=== PATIENT | female | born 1965 | race Caucasian/White ===

== ENCOUNTER 2018-10-28 21:56 | Emergency (ER) | payer OTHER ==
[~2018-10-28] VITALS: Ht 170.2 cm; Wt 98.4 kg
--- NOTE | 2018-10-28 22:54 | NUR ---
PT AMBULATES FROM LOBBY TO ROOM.
[2018-10-28 23:17] VITALS: BP 136/74
--- NOTE | 2018-10-28 23:20 | NUR ---
FIRST CONTACT WITH PT. PT LAYING ON R SIDE LAYING FOR COMFORT FROM L LOW BACK PAIN. PT REPORTS L FLANK PAIN RADIATES TO LLQ X TODAY. DENIES N/V/D. HX OF LOW BACK PAIN, 'I THINK I'VE JUST THROWN MY BACK OUT'. PT DENIES URINARY S/S, ' I'VE HAD A KIDNEY STONE, THIS DOESN'T FEEL LIKE THAT'. BP/SPO2 MONITORING IN PLACE.
--- NOTE | 2018-10-28 23:25 | NUR ---
UA COLLECTED AND SENT
[2018-10-28] MEDS ORDERED: HYDROmorphone 1 MG/ML, 1ML ONE (23:27)
[2018-10-28] MEDS ORDERED: METHOCARBAMOL 750 MG TABLET ONE (23:27)
[2018-10-28] MEDS ORDERED: METHOCARBAMOL 750 MG TABLET PO ONE (23:30)
[2018-10-28] MEDS ORDERED: HYDROmorphone 1 MG/ML, 1ML IM ONE (23:30)
--- NOTE | 2018-10-28 23:32 | NUR ---
PT MEDICATED PER EMAR FOR 04/27 LOW BACK PAIN
[2018-10-28 23:35] LABS: MICROSCOPIC NOT IND
[2018-10-28 23:40] LABS: CULTURE INDICATED? NO
--- NOTE | 2018-10-29 00:25 | NUR ---
DC EDUCATION PROVIDED, PT DEMONSTRATES UNDERSTANDING. PT REPORTS IMPROVEMENT IN PAIN W/ MEDICATIONS. PT AMBUALTED STEADILY TO DC WITH RN AND SO. SO TO TRANSPORT PT HOME. Addendum: 10/29/18 at 0026 by LWEGENER PT MAINTAINING SPO2 >90% ON RA
== END 2018-10-29 00:28 | disposition home or self-care (01) ==
LOC: ED 23:57
DX: S39.012A Strain of muscle, fascia and tendon of lower back, initial encounter (principal); G89.29 Other chronic pain; X58.XXXA Exposure to other specified factors, initial encounter; Y93.89 Activity, other specified; Y92.89 Other specified places as the place of occurrence of the external cause; Y99.8 Other external cause status
CPT/HCPCS: 81003; 96372; 99283; J1170

== ENCOUNTER 2018-10-29 21:24 | Emergency (ER) | payer OTHER ==
[~2018-10-29] VITALS: Ht 170.2 cm; Wt 97.3 kg
[2018-10-29 21:30] VITALS: BP 141/83
--- NOTE | 2018-10-29 21:43 | NUR ---
BACK PAIN, SEEN HERE LAST PM FOR SAME. STATES "THE SPASMS ARE WORSE". PT IN POSITION OF COMFORT ON STRETCHER, STATES SPASMS HAVE 'DOUBLED IN STRENGTH'. WAITING FOR APPOINTMENT BUT UNABLE TO CONTROL PAIN. MD AT BEDSIDE, CALL LIGHT IN REACH
[2018-10-29] MEDS ORDERED: KETOROLAC 30 MG/1 ML ONE (21:53)
[2018-10-29] MEDS ORDERED: OXYcodone/APAP 10/325MG TABLET ONE (21:53)
[2018-10-29] MEDS ORDERED: DIAZEPAM 5 MG TABLET ONE (21:54)
[2018-10-29] MEDS ORDERED: DIAZEPAM 5 MG TABLET PO ONE (22:00)
[2018-10-29] MEDS ORDERED: KETOROLAC 30 MG/1 ML IM ONE (22:00)
[2018-10-29] MEDS ORDERED: OXYcodone/APAP 10/325MG TABLET PO ONE (22:00)
--- NOTE | 2018-10-29 22:15 | NUR ---
PT STATES PAIN TOLERABLE, ABLE TO GET UP FROM STRETCHER
[2018-10-29] MEDS ORDERED: ONDANSETRON ODT 8 MG ONE (22:24)
--- NOTE | 2018-10-29 22:43 | NUR ---
Patient/Caregiver given discharge instructions and they have confirmed that they understand the instructions. Patient ambulatory with steady gait.
== END 2018-10-29 22:47 | disposition home or self-care (01) ==
LOC: ED 22:15
DX: G89.29 Other chronic pain (principal); M54.5 Low back pain; M43.20 Fusion of spine, site unspecified
CPT/HCPCS: 96372; 99283; J1885

== ENCOUNTER 2018-10-31 00:18 | Emergency (ER) | payer OTHER ==
[~2018-10-31] VITALS: Ht 170.2 cm; Wt 98.0 kg
[2018-10-31] MEDS ORDERED: TRAM-47 PO (00:24)
[2018-10-31] MEDS ORDERED: VENL75CA PO (00:24)
[2018-10-31] MEDS ORDERED: CYCL-259 PO (00:24)
[2018-10-31] MEDS ORDERED: DIAZEPAM 5 MG TABLET PO ONE (01:00)
[2018-10-31] MEDS ORDERED: KETOROLAC 30 MG/1 ML IM ONE (01:00)
[2018-10-31] MEDS ORDERED: ONDANSETRON ODT 4 MG PO ONE (01:00)
[2018-10-31] MEDS ORDERED: HYDROmorphone 2 MG/ML, 1ML IM ONE (01:00)
--- NOTE | 2018-10-31 01:21 | NUR ---
Pt reports chronic back pain, states she is unable to follow up until later in the week "So I will just have to come here everyday for pain meds"
[2018-10-31] MEDS ORDERED: HYDROmorphone 2 MG/ML, 1ML ONE (01:25)
[2018-10-31] MEDS ORDERED: KETOROLAC 30 MG/1 ML ONE (01:25)
[2018-10-31] MEDS ORDERED: ONDANSETRON ODT 4 MG ONE (01:25)
[2018-10-31] MEDS ORDERED: DIAZEPAM 5 MG TABLET ONE (01:26)
[2018-10-31 01:33] VITALS: BP 129/72
--- NOTE | 2018-10-31 01:53 | NUR ---
Pt reports readiness for discharge, awake, alert and oriented, at bedside for ride home. Pt agrees to wait 15more min before discharge, MD agrees with poc
== END 2018-10-31 02:21 | disposition home or self-care (01) ==
LOC: ED 01:48
DX: S39.012A Strain of muscle, fascia and tendon of lower back, initial encounter (principal); G89.29 Other chronic pain; X58.XXXA Exposure to other specified factors, initial encounter; Y93.89 Activity, other specified; Y92.89 Other specified places as the place of occurrence of the external cause; Y99.8 Other external cause status
CPT/HCPCS: 96372; 99283; J1170; J1885; Q0162

== ENCOUNTER 2018-11-24 10:08 | Outpatient (CLI) | payer OTHER ==
[~2018-11-24 10:08] MED LIST: CYCL-259 PO; TRAM-47 PO; VENL75CA PO
== END 2018-11-24 23:59 | disposition home or self-care (01) ==
LOC: CFH 10:08
PROVIDERS: ATTEND Family Medicine
DX: Z12.31 Encounter for screening mammogram for malignant neoplasm of breast (principal)
CPT/HCPCS: 77063; 77067

== ENCOUNTER → 2019-01-18 | Outpatient (CLI) | payer OTHER | END | disposition home or self-care (01) | LOC: CFH 12:41 | PROVIDERS: ATTEND Internal Medicine Cardiovascular Disease | DX: I35.1 Nonrheumatic aortic (valve) insufficiency (principal) | CPT/HCPCS: 93306 ==

== ENCOUNTER → 2019-01-20 | Outpatient (CLI) | payer OTHER | END | disposition home or self-care (01) | LOC: CFH 08:04 | PROVIDERS: ATTEND Internal Medicine Cardiovascular Disease | DX: I25.89 Other forms of chronic ischemic heart disease (principal); I10 Essential (primary) hypertension | CPT/HCPCS: 78452; 93017; A9502 ==

== ENCOUNTER 2019-02-02 07:57 | Day surgery (SDC) | payer OTHER ==
[~2019-02-02] VITALS: Ht 168.9 cm; Wt 92.3 kg
[2019-02-02] MEDS ORDERED: SODIUM CHLORIDE 0.9% 1,000 ML IV SCH ×2 (08:20→11:00)
[2019-02-02 08:23] VITALS: BP 113/76
[2019-02-02] MEDS ORDERED: methylPREDNISolone SOD SUCC 125 MG/2 ML IVPush ONE (08:30)
[2019-02-02] MEDS ORDERED: DIPHENHYDRAMINE 50 MG/ML, 1ML IVPush ONE (08:30)
[2019-02-02] MEDS ORDERED: PLEASE ENTER HEIGHT AND WEIGHT MC SCH (08:30)
[2019-02-02] MEDS ORDERED: METO25TA91 PO (08:36)
[2019-02-02] MEDS ORDERED: ATOR40TA78 PO (08:36)
[2019-02-02] MEDS ORDERED: LISI-167 PO (08:36)
[2019-02-02] MEDS ORDERED: ASPI-496 PO (08:37)
[2019-02-02 09:10] LABS: BASOPHILS # (AUTO) 0.02 x10^3/uL (0-0.1); BASOPHILS % (AUTO) 0 % (0-1); EOSINOPHILS # (AUTO) 0.32 x10^3/uL (0-0.4); EOSINOPHILS % (AUTO) 5 % (1-7); LYMPHOCYTES # (AUTO) 2.26 x10^3/uL (1-3.4); LYMPHOCYTES % (AUTO) 34 % (22-44); MD NO; MEAN CORPUSCULAR HEMOGLOBIN 32.8 pg (27.0-34.8); MEAN CORPUSCULAR HGB CONC 33.7 g/dL (32.4-35.8); MEAN CORPUSCULAR VOLUME 97.4 fL (80-100); MEAN PLATELET VOLUME 8.5 fL (7.4-10.4); MONOCYTES % (AUTO) 6 % (2-9); NEUTROPHILS # (AUTO) 3.64 x10^3/uL (1.8-6.8); NEUTROPHILS % (AUTO) 55 % (42-75); PLATELET COUNT 228 x10^3/uL (130-400); RED BLOOD COUNT 4.49 x10^6/uL (3.82-5.3); RED CELL DISTRIBUTION WIDTH 12.4 % (9.6-15.2)
[2019-02-02 09:13] LABS: ANION GAP 8 mmol/L (5-15); CALCIUM 8.8 mg/dL (8.5-10.1); CHLORIDE 108 mmol/L (98-107); CREATININE 0.84 mg/dL (0.55-1.02)
[2019-02-02] MEDS ORDERED: MIDAZOLAM 1 MG/ML, 5ML ONE (09:30)
[2019-02-02] MEDS ORDERED: FENTANYL PF 100 MCG/2ML ONE ×2 (09:30→10:45)
[2019-02-02] MEDS ORDERED: DIPHENHYDRAMINE 50 MG/ML, 1ML ONE (09:31)
[2019-02-02] MEDS ORDERED: methylPREDNISolone SOD SUCC 125 MG/2 ML ONE (09:31)
[2019-02-02] MEDS ORDERED: ASPIRIN 325 MG TABLET EC ONE (09:31)
[2019-02-02] MEDS ORDERED: LIDOCAINE 1%, 20ML ONE (09:31)
[2019-02-02] MEDS ORDERED: MIDAZOLAM 1 MG/ML, 2ML ONE (10:45)
== END 2019-02-02 15:39 | disposition home or self-care (01) ==
LOC: CACL 07:57
PROVIDERS: ATTEND Internal Medicine Cardiovascular Disease
DX: I20.0 Unstable angina (principal); I10 Essential (primary) hypertension; E78.00 Pure hypercholesterolemia, unspecified; F17.210 Nicotine dependence, cigarettes, uncomplicated; E66.9 Obesity, unspecified; Z68.35 Body mass index [BMI] 35.0-35.9, adult; Z72.89 Other problems related to lifestyle; Z79.899 Other long term (current) drug therapy
CPT/HCPCS: 36415; 80048; 85025; 93458; 99156; C1769; C1894; J1200; J2250; J2930; J3010; Q9967

== ENCOUNTER 2019-03-09 12:40 | Outpatient (CLI) | payer OTHER, MEDICAID | END 2019-03-09 23:59 | disposition home or self-care (01) | LOC: CFH 12:40 | PROVIDERS: ATTEND Family Medicine | DX: Z12.2 Encounter for screening for malignant neoplasm of respiratory organs (principal); M25.78 Osteophyte, vertebrae; Z98.1 Arthrodesis status; R05 Cough; Z87.891 Personal history of nicotine dependence | CPT/HCPCS: G0297 ==

== ENCOUNTER → 2019-07-09 | Outpatient (CLI) | payer OTHER ==
[~2019-07-09] MED LIST changes: +ASPI-496 PO; +ATOR40TA78 PO; +IBUP-1223 PO; +LISI-167 PO; +METO25TA91 PO; +VALS80TA3 PO
== END | disposition home or self-care (01) ==
LOC: CFH 09:16
PROVIDERS: ATTEND Neurological Surgery
DX: M51.86 Other intervertebral disc disorders, lumbar region (principal); M54.5 Low back pain; Z98.1 Arthrodesis status; Z90.89 Acquired absence of other organs; Z87.891 Personal history of nicotine dependence; Z91.041 Radiographic dye allergy status
CPT/HCPCS: 72110; 72148

== ENCOUNTER → 2019-07-23 | Outpatient (CLI) | payer OTHER ==
[2019-07-23 10:52] LABS: BASOPHILS # (AUTO) 0.03 x10^3/uL (0-0.1); BASOPHILS % (AUTO) 1 % (0-1); EOSINOPHILS # (AUTO) 0.23 x10^3/uL (0-0.4); EOSINOPHILS % (AUTO) 3 % (1-7); LYMPHOCYTES # (AUTO) 2.73 x10^3/uL (1-3.4); LYMPHOCYTES % (AUTO) 39 % (22-44); MD NO; MEAN CORPUSCULAR HEMOGLOBIN 32.7 pg (27.0-34.8); MEAN CORPUSCULAR HGB CONC 33.2 g/dL (32.4-35.8); MEAN CORPUSCULAR VOLUME 98.4 fL (80-100); MEAN PLATELET VOLUME 8.5 fL (7.4-10.4); MONOCYTES % (AUTO) 7 % (2-9); NEUTROPHILS # (AUTO) 3.56 x10^3/uL (1.8-6.8); NEUTROPHILS % (AUTO) 51 % (42-75); PLATELET COUNT 244 x10^3/uL (130-400); RED BLOOD COUNT 4.66 x10^6/uL (3.82-5.3); RED CELL DISTRIBUTION WIDTH 13.4 % (9.6-15.2)
[2019-07-23 10:54] LABS: MICROSCOPIC AUTO
[2019-07-23 11:00] LABS: ALBUMIN 3.9 g/dL (3.4-5.0); ANION GAP 5 mmol/L (5-15); CALCIUM 9.2 mg/dL (8.5-10.1); CHLORIDE 109 mmol/L (98-107)
[2019-07-23 11:01] LABS: CULTURE INDICATED? YES
[2019-07-23 11:03] LABS: ALANINE AMINOTRANSFERASE 35 U/L (12-78); ALKALINE PHOSPHATASE 123 U/L (45-117); BILIRUBIN,TOTAL 0.3 mg/dL (0.2-1.0); CREATININE 0.78 mg/dL (0.55-1.02); TOTAL PROTEIN 7.1 g/dL (6.4-8.2)
[2019-07-23 11:09] LABS: INTERNATIONAL NORMALIZED RATIO 0.9 (0.93-1.1); PROTHROMBIN TIME 9.5 Seconds (9.6-11.5)
== END | disposition home or self-care (01) ==
LOC: STAR 09:34
PROVIDERS: ATTEND Neurological Surgery
DX: Z01.818 Encounter for other preprocedural examination (principal); M51.36 Other intervertebral disc degeneration, lumbar region
CPT/HCPCS: 36415; 71046; 80053; 81001; 85025; 85610; 85730; 87077; 87086; 87186; 93005

== ENCOUNTER → 2019-08-02 | Outpatient (CLI) | payer OTHER ==
[~2019-08-02] MED LIST changes: +HYDR-36 PO; +METH750T2 PO; +ONDA4TAB13 PO; +THROMBIN 5,000 UNIT VIAL TP ONE
[2019-08-02 14:07] LABS: MICROSCOPIC NOT IND
[2019-08-02 14:17] LABS: CULTURE INDICATED? NO
== END | disposition home or self-care (01) ==
LOC: LAB 13:33
PROVIDERS: ATTEND Neurological Surgery
DX: N39.0 Urinary tract infection, site not specified (principal)
CPT/HCPCS: 81003

== ENCOUNTER → 2019-08-03 | Outpatient (CLI) | payer OTHER ==
[~2019-08-03] MED LIST changes: -THROMBIN 5,000 UNIT VIAL TP ONE
== END | disposition home or self-care (01) ==
LOC: CVU 12:33
PROVIDERS: ATTEND Internal Medicine Cardiovascular Disease
DX: I35.1 Nonrheumatic aortic (valve) insufficiency (principal)
CPT/HCPCS: 0399T ×2; 93306 ×2

== ENCOUNTER 2019-08-04 14:31 | Inpatient (IN) | payer OTHER ==
[~2019-08-04] VITALS: Ht 167.6 cm; Wt 112.3 kg
[~2019-08-04 14:31] MED LIST changes: +BACITRACIN 50,000 UNIT ONE; +BUPIVACAINE/PF 0.5% ONE; +EPINEPHRINE 1 MG/ML, 1ML ONE; -HYDR-36 PO; -METH750T2 PO; -ONDA4TAB13 PO; +THROMBIN 5,000 UNIT VIAL TP ONE
[2019-08-04] MEDS ORDERED: LACTATED RINGERS 1,000 ML IV SCH (15:56)
[2019-08-04] MEDS ORDERED: MIDAZOLAM 1 MG/ML, 2ML ONE (17:10)
[2019-08-04] MEDS ORDERED: FENTANYL PF 250 MCG/5ML ONE (17:11)
[2019-08-04] MEDS ORDERED: GABAPENTIN 300 MG CAPSULE PO SCH (18:30)
[2019-08-04] MEDS ORDERED: MIDAZOLAM 1 MG/ML, 2ML IV PRN (18:30)
[2019-08-04] MEDS ORDERED: METOPROLOL 1 MG/ML, 5ML IV PRN (18:30)
[2019-08-04] MEDS ORDERED: ACETAMINOPHEN 325 MG TABLET PO PRN ×2 (18:30→22:30)
[2019-08-04] MEDS ORDERED: hydrALAzine 20 MG/ML, 1ML IV PRN (18:30)
[2019-08-04] MEDS ORDERED: PROMETHAZINE 25 MG/ML, 1ML IV PRN (18:30)
[2019-08-04] MEDS ORDERED: OXYcodone 5 MG/5 ML ORAL.SOL UDC PO PRN (18:30)
[2019-08-04] MEDS ORDERED: MEPERIDINE/PF 25MG/ML,1ML IVPush PRN (18:30)
[2019-08-04] MEDS ORDERED: ALBUTEROL/IPRATROPIUM 2.5MG/0.5MG, 3 ML NPPB PRN (18:30)
[2019-08-04] MEDS ORDERED: HYDROmorphone 2 MG/ML, 1ML IVPush PRN (18:30)
[2019-08-04] MEDS ORDERED: VANCOMYCIN 1,000 MG IVPB ONE (19:29)
[2019-08-04] MEDS ORDERED: PROPOFOL 10 MG/ML, 20ML ONE (19:32)
[2019-08-04] MEDS ORDERED: DEXAMETHASONE 4 MG/ML, 1ML ONE (19:32)
[2019-08-04] MEDS ORDERED: ONDANSETRON 2MG/ML, 2ML ONE (19:32)
[2019-08-04] MEDS ORDERED: CEFAZOLIN 1,000 MG ONE (19:32)
[2019-08-04] MEDS ORDERED: OXYcodone 5 MG/5 ML ORAL.SOL UDC ONE (19:56)
[2019-08-04] MEDS ORDERED: FENTANYL PF 100 MCG/2ML ONE (19:56)
[2019-08-04] MEDS: FENTANYL PF 100 MCG/2ML IV PRN ×2 (20:02→20:34)
[2019-08-04] MEDS ORDERED: DIAZEPAM 5 MG/ML, 2ML ONE (20:11)
[2019-08-04] MEDS: DIAZEPAM 5 MG/ML, 2ML IVPush PRN ×2 (20:19→20:31)
[2019-08-04] MEDS ORDERED: PHARMACY MAY ADJ FOR RENAL FX MC PRN (22:00)
[2019-08-04] MEDS ORDERED: ATORVASTATIN 40 MG TABLET PO SCH ×2 (22:21→23:30)
[2019-08-04] MEDS ORDERED: morphine SULFATE 10 MG/ML, 1ML IV PRN (22:30)
[2019-08-04] MEDS ORDERED: ACETAMINOPHEN 650 MG SUPP PR PRN (22:30)
[2019-08-04] MEDS ORDERED: MAGNESIUM HYDROXIDE 8%, 30ML UDC PO PRN (22:30)
[2019-08-04] MEDS ORDERED: BISACODYL 10 MG SUPP PR PRN (22:30)
[2019-08-04] MEDS ORDERED: D5%-0.9% NACL+KCL 20MEQ 1,000 ML IV SCH (22:30)
[2019-08-04] MEDS ORDERED: DIPHENHYDRAMINE 50 MG/ML, 1ML IM PRN (22:30)
[2019-08-04] MEDS ORDERED: PROMETHAZINE 25 MG/ML, 1ML IM PRN (22:30)
[2019-08-04] MEDS ORDERED: ONDANSETRON 2MG/ML, 2ML IV PRN (22:30)
[2019-08-04] MEDS ORDERED: DIPHENHYDRAMINE 25 MG CAPSULE PO PRN (22:30)
[2019-08-04] MEDS ORDERED: DIPHENHYDRAMINE 50 MG/ML, 1ML IVPush PRN (22:30)
[2019-08-04] MEDS ORDERED: METHOCARBAMOL 1,000 MG in DEXTROSE 5% 100 ML IV ONE (22:30)
[2019-08-04] MEDS ORDERED: VENLAFAXINE 75 MG CAP ER PO SCH (23:30)
[2019-08-04] MEDS ORDERED: VALSARTAN 80 MG TABLET PO SCH (23:30)
[2019-08-04] MEDS: HYDROcodone/APAP 10/325 MG TABLET PO PRN (23:43)
[2019-08-05 00:31] VITALS: BP 116/78
[2019-08-05] MEDS: CEFAZOLIN PMX 2GM/50ML 50 ML IVPB SCH ×2 (02:34→10:35)
[2019-08-05 03:55] VITALS: BP 92/51
[2019-08-05 04:17] VITALS: BP 93/54
[2019-08-05] MEDS: HYDROcodone/APAP 10/325 MG TABLET PO PRN (04:28)
[2019-08-05] MEDS ORDERED: METOPROLOL SUCCINATE 25 MG TAB.ER.24H PO SCH ×3 (06:00→09:39)
[2019-08-05] MEDS: METHOCARBAMOL 750 MG in DEXTROSE 5% 100 ML IV SCH ×2 (06:44→15:35)
[2019-08-05 08:00] VITALS: BP 100/63
[2019-08-05] MEDS ORDERED: VENLAFAXINE 75 MG CAP ER PO SCH (09:00)
[2019-08-05] MEDS ORDERED: VALSARTAN 80 MG TABLET PO SCH ×2 (09:00→09:39)
[2019-08-05] MEDS ORDERED: SENNA/DOCUSATE TABLET PO SCH (09:00)
[2019-08-05] MEDS ORDERED: HYDR-36 PO (09:50)
[2019-08-05] MEDS ORDERED: METH750T2 PO (09:51)
[2019-08-05] MEDS ORDERED: ONDA4TAB13 PO (09:52)
[2019-08-05] MEDS ORDERED: NS + 20MEQ KCL 1,000 ML IV SCH (10:00)
[2019-08-05 10:20] VITALS: BP 100/63
[2019-08-05 14:27] VITALS: BP 112/72
[2019-08-05] MEDS ORDERED: ROCURONIUM 10 MG/ML,10ML ONE (17:54)
[2019-08-05] MEDS ORDERED: EPHEDRINE 50 MG/ML, 1ML ONE (17:54)
[2019-08-05] MEDS ORDERED: SUCCINYLCHOLINE 20 MG/ML, 10ML ONE (17:54)
[2019-08-05] MEDS ORDERED: PHENYLEPHRINE 10 MG/ML ONE (17:54)
[2019-08-07] MEDS ORDERED: METHOCARBAMOL 750 MG TABLET PO SCH (06:30)
== END 2019-08-05 17:00 | disposition home or self-care (01) | DRG 496 ==
LOC: ORIP 14:31 → 4NE 21:09
PROVIDERS: ADMIT Neurological Surgery; ATTEND Neurological Surgery
PROC: 0Q5 Lower Bones, Destruction (ICD-10-PCS; 2019-08-04)
PROC: 0QP004Z Removal of Internal Fixation Device from Lumbar Vertebra, Open Approach (ICD-10-PCS; principal; 2019-08-04 17:00)
DX: M43.16 Spondylolisthesis, lumbar region (principal); Z68.41 Body mass index [BMI] 40.0-44.9, adult; I95.81 Postprocedural hypotension; I10 Essential (primary) hypertension; E78.5 Hyperlipidemia, unspecified; E66.9 Obesity, unspecified; M19.90 Unspecified osteoarthritis, unspecified site; G43.909 Migraine, unspecified, not intractable, without status migrainosus; G89.29 Other chronic pain; Z87.891 Personal history of nicotine dependence; Z91.041 Radiographic dye allergy status; Z79.899 Other long term (current) drug therapy
CPT/HCPCS: 72100; S0020; G0378; J0171; J0690; J1100; J2250; J2405; J2704; J3010; J3360; J3370; J3480; J0330; J2270; J2370; J2800; J7120

== ENCOUNTER 2019-08-16 15:28 | Outpatient (CLI) | payer OTHER ==
[~2019-08-16 15:28] MED LIST changes: -BACITRACIN 50,000 UNIT ONE; -BUPIVACAINE/PF 0.5% ONE; -EPINEPHRINE 1 MG/ML, 1ML ONE; +HYDR-36 PO; +METH750T2 PO; +ONDA4TAB13 PO; -THROMBIN 5,000 UNIT VIAL TP ONE
== END 2019-08-16 23:59 | disposition home or self-care (01) ==
LOC: CFH 15:28
PROVIDERS: ATTEND Neurological Surgery
DX: M47.816 Spondylosis without myelopathy or radiculopathy, lumbar region (principal); M43.26 Fusion of spine, lumbar region; Z98.890 Other specified postprocedural states
CPT/HCPCS: 72110

== ENCOUNTER 2019-09-19 11:08 | Emergency (ER) | payer OTHER ==
[~2019-09-19] VITALS: Ht 167.6 cm; Wt 100.1 kg
[2019-09-19 11:24] VITALS: BP 146/83
--- NOTE | 2019-09-19 11:48 | NUR ---
Xray at bedside Ice pack applied Provider asked for pain medication (Toe pain rated at 7/10)
[2019-09-19] MEDS ORDERED: IBUPROFEN 600 MG TABLET PO ONE (12:00)
[2019-09-19] MEDS ORDERED: IBUPROFEN 200 MG TABLET ONE (12:01)
--- NOTE | 2019-09-19 12:12 | NUR ---
PATIENT ACTUALLY DEFERRING MEDICINE (DOESN'T WANT IBPROFEN)PROVIDER AWARE PROVIDEED WITH WALKING SHOE-HELPED FIT
--- NOTE | 2019-09-19 12:17 | NUR ---
CELYAY CALLED TO EXPIDITE READ
== END 2019-09-19 12:43 | disposition home or self-care (01) ==
LOC: ED 11:35
DX: S90.122A Contusion of left lesser toe(s) without damage to nail, initial encounter (principal); Z91.041 Radiographic dye allergy status; X58.XXXA Exposure to other specified factors, initial encounter; Y93.89 Activity, other specified; Y92.098 Other place in other non-institutional residence as the place of occurrence of the external cause; Y99.8 Other external cause status
CPT/HCPCS: 99283

== ENCOUNTER 2019-10-29 11:17 | Outpatient (CLI) | payer OTHER | END 2019-10-29 23:59 | disposition home or self-care (01) | LOC: CFH 11:17 | PROVIDERS: ATTEND Neurological Surgery | DX: M51.37 Other intervertebral disc degeneration, lumbosacral region (principal); M48.07 Spinal stenosis, lumbosacral region | CPT/HCPCS: 72110 ==

== ENCOUNTER → 2019-12-29 | Outpatient (CLI) | payer OTHER ==
[~2019-12-29] MED LIST changes: +TRAM50TA2 PO
[2019-12-29 12:00] LABS: INTERNATIONAL NORMALIZED RATIO 0.96 (0.93-1.1); PROTHROMBIN TIME 10.2 Seconds (9.6-11.5)
[2019-12-29 12:01] LABS: BASOPHILS # (AUTO) 0.02 x10^3/uL (0-0.1); BASOPHILS % (AUTO) 0 % (0-1); EOSINOPHILS # (AUTO) 0.22 x10^3/uL (0-0.4); EOSINOPHILS % (AUTO) 3 % (1-7); LYMPHOCYTES # (AUTO) 2.18 x10^3/uL (1-3.4); LYMPHOCYTES % (AUTO) 34 % (22-44); MD NO; MEAN CORPUSCULAR HEMOGLOBIN 32.2 pg (27.0-34.8); MEAN CORPUSCULAR HGB CONC 33.9 g/dL (32.4-35.8); MEAN PLATELET VOLUME 9.3 fL (7.4-10.4); MONOCYTES # (AUTO) 0.43 x10^3/uL (0.2-0.8); MONOCYTES % (AUTO) 7 % (2-9); NEUTROPHILS # (AUTO) 3.62 x10^3/uL (1.8-6.8); NEUTROPHILS % (AUTO) 56 % (42-75); PLATELET COUNT 234 x10^3/uL (130-400); RED BLOOD COUNT 4.88 x10^6/uL (3.82-5.3); RED CELL DISTRIBUTION WIDTH 12.9 % (9.6-15.2)
[2019-12-29 12:13] LABS: ALANINE AMINOTRANSFERASE 45 U/L (12-78); ALBUMIN 3.9 g/dL (3.4-5.0); ANION GAP 5 mmol/L (5-15); CALCIUM 9.3 mg/dL (8.5-10.1); CHLORIDE 110 mmol/L (98-107); CREATININE 0.73 mg/dL (0.55-1.02)
[2019-12-29 12:15] LABS: ALKALINE PHOSPHATASE 120 U/L (45-117); BILIRUBIN,TOTAL 0.7 mg/dL (0.2-1.0); TOTAL PROTEIN 7.2 g/dL (6.4-8.2)
== END | disposition home or self-care (01) ==
LOC: STAR 10:29
PROVIDERS: ATTEND Neurological Surgery
DX: Z01.818 Encounter for other preprocedural examination (principal); M51.36 Other intervertebral disc degeneration, lumbar region
CPT/HCPCS: 36415; 71046; 80053; 85025; 85610; 85730; 93005

== ENCOUNTER 2020-01-05 10:00 | Inpatient (IN) | payer OTHER ==
[~2020-01-05] VITALS: Ht 167.6 cm; Wt 96.8 kg
[~2020-01-05 10:00] MED LIST changes: +BACITRACIN 50,000 UNIT ONE; +BUPIVACAINE/PF-EPI 0.5% 1:200K ONE; +HYDR-3246 PO; -HYDR-36 PO
[2020-01-05] MEDS ORDERED: ACETAMINOPHEN 500 MG TABLET PO STA (10:29)
[2020-01-05] MEDS ORDERED: GABAPENTIN 300 MG CAPSULE PO STA (10:29)
[2020-01-05] MEDS ORDERED: OXYcodone IR 5MG TABLET PO STA (10:29)
[2020-01-05] MEDS ORDERED: LACTATED RINGERS 1,000 ML IV SCH (10:30)
[2020-01-05] MEDS ORDERED: CHLORHEXIDINE 15 ML UDC MM ONE (10:30)
[2020-01-05] MEDS ORDERED: SCOPOLAMINE 1MG PATCH TD ONE (10:38)
[2020-01-05] MEDS ORDERED: PROPOFOL 50 ML ONE ×3 (10:44→14:13)
[2020-01-05] MEDS ORDERED: FENTANYL PF 250 MCG/5ML ONE (10:44)
[2020-01-05] MEDS ORDERED: MIDAZOLAM 1 MG/ML, 2ML ONE (10:44)
[2020-01-05] MEDS ORDERED: PROPOFOL 10 MG/ML, 20ML ONE (10:45)
[2020-01-05] MEDS ORDERED: ONDANSETRON 2MG/ML, 2ML ONE (10:45)
[2020-01-05] MEDS ORDERED: LIDOCAINE-MPF 2% ,5ML ONE ×2 (10:45)
[2020-01-05] MEDS ORDERED: SUCCINYLCHOLINE 20 MG/ML, 10ML ONE (10:45)
[2020-01-05] MEDS ORDERED: DEXAMETHASONE 4 MG/ML, 1ML ONE ×2 (10:45)
[2020-01-05] MEDS ORDERED: CEFAZOLIN 1,000 MG ONE ×2 (10:45)
[2020-01-05] MEDS ORDERED: THROMBIN 20,000 UNIT VIAL TP ONE (10:59)
[2020-01-05] MEDS ORDERED: ROCURONIUM 10 MG/ML,10ML ONE (12:34)
[2020-01-05] MEDS ORDERED: NEOSTIGMINE 1 MG/ML, 10ML ONE (12:34)
[2020-01-05] MEDS ORDERED: GLYCOPYRROLATE 0.2MG/1ML, 5ML ONE (12:34)
[2020-01-05] MEDS ORDERED: BACITRACIN OINT 500U/GM, 15 GM ONE (13:41)
[2020-01-05] MEDS ORDERED: VANCOMYCIN 1,000 MG ONE (13:42)
[2020-01-05] MEDS ORDERED: HYDROmorphone 1 MG/ML, 1ML INJ ONE (15:13)
[2020-01-05] MEDS ORDERED: OXYcodone 5 MG/5 ML ORAL.SOL UDC ONE (15:13)
[2020-01-05] MEDS: HYDROmorphone 1 MG/ML, 1ML INJ IVPush PRN ×2 (15:17→15:30)
[2020-01-05] MEDS ORDERED: MEPERIDINE/PF 25MG/ML,1ML ONE (15:22)
[2020-01-05] MEDS ORDERED: OXYcodone 5 MG/5 ML ORAL.SOL UDC PO PRN (15:30)
[2020-01-05] MEDS ORDERED: FENTANYL PF 100 MCG/2ML IV PRN (15:30)
[2020-01-05] MEDS ORDERED: ONDANSETRON 2MG/ML, 2ML IVPush PRN (15:30)
[2020-01-05] MEDS ORDERED: hydrALAzine 20 MG/ML, 1ML IV PRN (15:30)
[2020-01-05] MEDS ORDERED: MEPERIDINE/PF 25MG/0.5ML IVPush PRN (15:30)
[2020-01-05] MEDS ORDERED: METHOCARBAMOL 1,000 MG in DEXTROSE 5% 100 ML IV ONE (16:45)
[2020-01-05 17:05] VITALS: BP 110/70
[2020-01-05] MEDS ORDERED: DIPHENHYDRAMINE 50 MG/ML, 1ML IVPush PRN (17:30)
[2020-01-05] MEDS ORDERED: DIPHENHYDRAMINE 50 MG/ML, 1ML IM PRN (17:30)
[2020-01-05] MEDS ORDERED: ACETAMINOPHEN 325 MG TABLET PO PRN (17:30)
[2020-01-05] MEDS ORDERED: ACETAMINOPHEN 650 MG SUPP PR PRN (17:30)
[2020-01-05] MEDS ORDERED: METHOCARBAMOL 750 MG TABLET PO PRN (17:30)
[2020-01-05] MEDS ORDERED: PROMETHAZINE 25 MG/ML, 1ML IM PRN (17:30)
[2020-01-05] MEDS ORDERED: ONDANSETRON 2MG/ML, 2ML IV PRN (17:30)
[2020-01-05] MEDS: LABETALOL 5MG/ML, 20ML IV SCH ×2 (17:30→23:42)
[2020-01-05] MEDS ORDERED: DIPHENHYDRAMINE 25 MG CAPSULE PO PRN (17:30)
[2020-01-05] MEDS ORDERED: MAGNESIUM HYDROXIDE 8%, 30ML UDC PO PRN (17:30)
[2020-01-05] MEDS ORDERED: BISACODYL 10 MG SUPP PR PRN (17:30)
[2020-01-05 17:36] VITALS: BP 102/65
[2020-01-05 18:26] VITALS: BP 97/62
[2020-01-05] MEDS: NS + 20MEQ KCL 1,000 ML IV SCH (20:20)
[2020-01-05] MEDS: ATORVASTATIN 40 MG TABLET PO SCH (20:20)
[2020-01-05] MEDS: CEFAZOLIN PMX 1GM/50ML 50 ML IVPB SCH (20:20)
[2020-01-05 23:50] VITALS: BP 102/66
[2020-01-06] MEDS ORDERED: METHOCARBAMOL 750 MG in DEXTROSE 5% 100 ML IV SCH
[2020-01-06 03:50] VITALS: BP 86/55
[2020-01-06 03:59] VITALS: BP 106/55
[2020-01-06] MEDS: CEFAZOLIN PMX 1GM/50ML 50 ML IVPB SCH ×2 (04:53→12:27)
[2020-01-06] MEDS: METOPROLOL SUCCINATE 25 MG TAB.ER.24H PO SCH (05:58)
[2020-01-06] MEDS ORDERED: HEPARIN 5,000 UNITS/ML, 1ML SQ SCH (06:00)
[2020-01-06 07:43] VITALS: BP 93/59
[2020-01-06 08:38] VITALS: BP 101/66
[2020-01-06] MEDS: VENLAFAXINE 75 MG CAP ER PO SCH (08:39)
[2020-01-06] MEDS: SENNA/DOCUSATE TABLET PO SCH (08:39)
[2020-01-06] MEDS: LABETALOL 5MG/ML, 20ML IV SCH ×2 (08:40→17:30)
[2020-01-06] MEDS: VALSARTAN 80 MG TABLET PO SCH (08:40)
[2020-01-06] MEDS: OXYcodone/APAP 5/325MG TABLET PO PRN ×4 (09:29→20:44)
[2020-01-06] MEDS ORDERED: OXYcodone/APAP 10/325MG TABLET PO PRN (09:30)
[2020-01-06] MEDS: NS + 20MEQ KCL 1,000 ML IV SCH ×2 (10:03→22:06)
[2020-01-06 14:00] VITALS: BP 103/57
[2020-01-06 18:24] VITALS: BP 93/57
[2020-01-06] MEDS: ATORVASTATIN 40 MG TABLET PO SCH (20:38)
[2020-01-06] MEDS: METHOCARBAMOL 750 MG TABLET PO SCH (21:35)
[2020-01-07 00:23] VITALS: BP 104/65
[2020-01-07] MEDS: OXYcodone/APAP 5/325MG TABLET PO PRN ×4 (00:49→12:55)
[2020-01-07] MEDS: LABETALOL 5MG/ML, 20ML IV SCH ×2 (01:30→09:30)
[2020-01-07 05:34] VITALS: BP 110/63
[2020-01-07] MEDS: METHOCARBAMOL 750 MG TABLET PO SCH (05:36)
[2020-01-07] MEDS: METOPROLOL SUCCINATE 25 MG TAB.ER.24H PO SCH (05:36)
[2020-01-07 08:47] VITALS: BP 102/66
[2020-01-07] MEDS: VENLAFAXINE 75 MG CAP ER PO SCH (08:49)
[2020-01-07] MEDS: VALSARTAN 80 MG TABLET PO SCH (08:50)
[2020-01-07] MEDS: SENNA/DOCUSATE TABLET PO SCH (08:50)
[2020-01-07] MEDS: NS + 20MEQ KCL 1,000 ML IV SCH (10:09)
[2020-01-07 12:33] VITALS: BP 108/66
[2020-01-07] MEDS ORDERED: METH750T87 PO (12:47)
[2020-01-07] MEDS ORDERED: OXYC-307 PO (12:47)
[2020-01-07] MEDS ORDERED: DOCU-131 PO (12:48)
[2020-01-07] MEDS ORDERED: METHOCARBAMOL 750 MG TABLET PO SCH (17:00)
== END 2020-01-07 13:30 | disposition home or self-care (01) | DRG 460 ==
LOC: ORIP 10:00 → 4NE 16:42
PROVIDERS: ADMIT Neurological Surgery; ATTEND Neurological Surgery
PROC: 0SB20ZZ Excision of Lumbar Vertebral Disc, Open Approach (ICD-10-PCS; 2020-01-05)
PROC: 0SG00A0 Fusion of Lumbar Vertebral Joint with Interbody Fusion Device, Anterior Approach, Anterior Column, Open Approach (ICD-10-PCS; principal; 2020-01-05 14:30)
DX: M48.061 Spinal stenosis, lumbar region without neurogenic claudication (principal); M48.56XA Collapsed vertebra, not elsewhere classified, lumbar region, initial encounter for fracture; M51.16 Intervertebral disc disorders with radiculopathy, lumbar region; E66.9 Obesity, unspecified; Z68.34 Body mass index [BMI] 34.0-34.9, adult; G89.29 Other chronic pain; Z88.8 Allergy status to other drugs, medicaments and biological substances; I10 Essential (primary) hypertension; E78.5 Hyperlipidemia, unspecified
CPT/HCPCS: 72100; J3490; 95938; 95941; C1713; G0378; J0690; J1100; J1170; J1644; J2175; J2250; J2270; J2405; J2704; J2710; J3010; J3370; J3480; C1889; C9352; J0330; J2800; J7120; U0001-CS

== ENCOUNTER → 2020-01-26 | Outpatient (CLI) | payer OTHER ==
[~2020-01-26] MED LIST changes: -BACITRACIN 50,000 UNIT ONE; -BUPIVACAINE/PF-EPI 0.5% 1:200K ONE; +DOCU-131 PO; +METH750T87 PO; +OXYC-307 PO
== END | disposition home or self-care (01) ==
LOC: CFH 11:57
PROVIDERS: ATTEND Physician Assistant Surgical
DX: M47.816 Spondylosis without myelopathy or radiculopathy, lumbar region (principal)
CPT/HCPCS: 72131

== ENCOUNTER 2020-01-28 08:39 | Outpatient (CLI) | payer OTHER ==
[2020-01-28] MEDS ORDERED: METH750T87 PO (09:05)
[2020-01-28] MEDS ORDERED: OXYC-307 PO (09:05)
== END 2020-01-28 23:59 | disposition home or self-care (01) ==
LOC: STAR 08:39
PROVIDERS: ATTEND Neurological Surgery
DX: Z02.9 Encounter for administrative examinations, unspecified (principal)

== ENCOUNTER 2020-02-02 06:14 | Inpatient (IN) | payer OTHER ==
[~2020-02-02] VITALS: Ht 167.6 cm; Wt 96.0 kg
[2020-02-02] MEDS ORDERED: CHLORHEXIDINE 15 ML UDC MM ONE (14:30)
[2020-02-02] MEDS ORDERED: LACTATED RINGERS 1,000 ML IV SCH (14:32)
[2020-02-02] MEDS ORDERED: THROMBIN 20,000 UNIT VIAL TP ONE ×2 (14:32→19:38)
[2020-02-02] MEDS ORDERED: BACITRACIN 50,000 UNIT ONE ×2 (14:32→19:37)
[2020-02-02] MEDS ORDERED: BUPIVACAINE/PF-EPI 0.5% 1:200K ONE ×2 (14:32→19:36)
[2020-02-02] MEDS ORDERED: ACETAMINOPHEN 500 MG TABLET PO ONE (14:38)
[2020-02-02] MEDS ORDERED: GABAPENTIN 300 MG CAPSULE PO ONE (14:38)
[2020-02-02] MEDS ORDERED: SCOPOLAMINE 1MG PATCH TD ONE (14:38)
[2020-02-02] MEDS ORDERED: LIDOCAINE-MPF 1%, 2ML ONE (14:47)
[2020-02-02] MEDS ORDERED: OXYcodone IR 5MG TABLET PO ONE (15:03)
[2020-02-02] MEDS ORDERED: LIDOCAINE-MPF 1%, 2ML INFIL STA (15:10)
[2020-02-02] MEDS ORDERED: MIDAZOLAM 1 MG/ML, 2ML ONE (15:53)
[2020-02-02] MEDS ORDERED: FENTANYL PF 100 MCG/2ML ONE ×4 (15:53→21:27)
[2020-02-02] MEDS ORDERED: DEXAMETHASONE 4 MG/ML, 1ML ONE (15:57)
[2020-02-02] MEDS ORDERED: PROPOFOL 10 MG/ML, 20ML ONE (15:57)
[2020-02-02] MEDS ORDERED: CEFAZOLIN 1,000 MG ONE (15:57)
[2020-02-02] MEDS ORDERED: ROCURONIUM 10MG/ML,5ML ONE (15:57)
[2020-02-02] MEDS ORDERED: NEOSTIGMINE 1 MG/ML, 10ML ONE (15:57)
[2020-02-02] MEDS ORDERED: GLYCOPYRROLATE 0.2MG/1ML, 5ML ONE (15:57)
[2020-02-02] MEDS ORDERED: ONDANSETRON 2MG/ML, 2ML ONE (15:57)
[2020-02-02] MEDS ORDERED: BACITRACIN OINT 500U/GM, 15 GM ONE (19:36)
[2020-02-02] MEDS ORDERED: HALOPERIDOL 5 MG/ML IV PRN (20:00)
[2020-02-02] MEDS ORDERED: hydrALAzine 20 MG/ML, 1ML IV PRN (20:00)
[2020-02-02] MEDS ORDERED: DIAZEPAM 5 MG/ML, 2ML IVPush PRN (20:00)
[2020-02-02] MEDS ORDERED: METHOCARBAMOL 1,000 MG in DEXTROSE 5% 100 ML IV PRN (20:00)
[2020-02-02] MEDS ORDERED: MEPERIDINE/PF 25MG/0.5ML IVPush PRN (20:00)
[2020-02-02] MEDS ORDERED: morphine SULFATE 10 MG/ML, 1ML IVPush PRN (20:00)
[2020-02-02] MEDS ORDERED: HYDROmorphone 1 MG/ML, 1ML INJ IVPush PRN (20:00)
[2020-02-02] MEDS ORDERED: PROMETHAZINE 25 MG/ML, 1ML IVPush PRN (20:00)
[2020-02-02] MEDS ORDERED: OXYcodone 5 MG/5 ML ORAL.SOL UDC PO PRN (20:00)
[2020-02-02] MEDS ORDERED: LABETALOL 5MG/ML, 20ML IV PRN ×2 (20:00→23:30)
[2020-02-02] MEDS ORDERED: SUGAMMADEX 200 MG/2 ML IVPush ONE (20:33)
[2020-02-02] MEDS ORDERED: OXYcodone 5 MG/5 ML ORAL.SOL UDC ONE (21:27)
[2020-02-02] MEDS ORDERED: MEPERIDINE/PF 25MG/ML,1ML ONE (21:27)
[2020-02-02] MEDS: FENTANYL PF 100 MCG/2ML IV PRN ×2 (21:34→21:49)
[2020-02-02 22:43] VITALS: BP 107/68
[2020-02-02] MEDS ORDERED: DIPHENHYDRAMINE 50 MG/ML, 1ML IM PRN (23:30)
[2020-02-02] MEDS ORDERED: BISACODYL 10 MG SUPP PR PRN (23:30)
[2020-02-02] MEDS ORDERED: DIPHENHYDRAMINE 25 MG CAPSULE PO PRN (23:30)
[2020-02-02] MEDS ORDERED: DEXAMETHASONE 4 MG/ML, 1ML IV PRN (23:30)
[2020-02-02] MEDS ORDERED: HYDROmorphone 2 MG/ML, 1ML IVPush PRN (23:30)
[2020-02-02] MEDS ORDERED: PROMETHAZINE 25 MG/ML, 1ML IM PRN (23:30)
[2020-02-02] MEDS ORDERED: MAGNESIUM HYDROXIDE 8%, 30ML UDC PO PRN (23:30)
[2020-02-02] MEDS ORDERED: ONDANSETRON 2MG/ML, 2ML IV PRN (23:30)
[2020-02-02] MEDS ORDERED: DIPHENHYDRAMINE 50 MG/ML, 1ML IVPush PRN (23:30)
[2020-02-02] MEDS: LABETALOL 5MG/ML, 20ML IV SCH (23:30)
[2020-02-03] MEDS ORDERED: METHOCARBAMOL 1,000 MG in DEXTROSE 5% 100 ML IV ONE
[2020-02-03] MEDS: NS + 20MEQ KCL 1,000 ML IV SCH ×2 (00:07→19:30)
[2020-02-03 02:45] VITALS: BP 93/56
[2020-02-03] MEDS: OXYcodone/APAP 10/325MG TABLET PO PRN ×5 (03:14→22:19)
[2020-02-03] MEDS: CEFAZOLIN PMX 1GM/50ML 50 ML IVPB SCH ×3 (04:19→20:02)
[2020-02-03] MEDS: METHOCARBAMOL 750 MG in DEXTROSE 5% 100 ML IV SCH ×3 (05:34→22:19)
[2020-02-03] MEDS: METOPROLOL SUCCINATE 25 MG TAB.ER.24H PO SCH (05:37)
[2020-02-03 06:44] VITALS: BP 91/54
[2020-02-03] MEDS: LABETALOL 5MG/ML, 20ML IV SCH ×3 (07:30→23:30)
[2020-02-03] MEDS: VENLAFAXINE 75 MG CAP ER PO SCH (08:03)
[2020-02-03] MEDS: SENNA/DOCUSATE TABLET PO SCH (08:03)
[2020-02-03 11:43] VITALS: BP 110/65
[2020-02-03 14:30] VITALS: BP 93/60
[2020-02-03 18:13] VITALS: BP 97/65
[2020-02-03 20:44] VITALS: BP 95/58
[2020-02-04 01:59] VITALS: BP 101/63
[2020-02-04] MEDS: OXYcodone/APAP 10/325MG TABLET PO PRN ×3 (02:22→10:20)
[2020-02-04] MEDS: METOPROLOL SUCCINATE 25 MG TAB.ER.24H PO SCH (06:03)
[2020-02-04] MEDS: METHOCARBAMOL 750 MG in DEXTROSE 5% 100 ML IV SCH (06:03)
[2020-02-04 06:33] VITALS: BP 98/57
[2020-02-04] MEDS: LABETALOL 5MG/ML, 20ML IV SCH (07:30)
[2020-02-04] MEDS: SENNA/DOCUSATE TABLET PO SCH (08:58)
[2020-02-04] MEDS: VENLAFAXINE 75 MG CAP ER PO SCH (08:58)
[2020-02-04] MEDS ORDERED: DOCU-131 PO (09:34)
[2020-02-04] MEDS ORDERED: OXYC-307 PO (09:34)
[2020-02-04] MEDS ORDERED: METH750T87 PO (09:35)
[2020-02-05] MEDS ORDERED: METHOCARBAMOL 750 MG TABLET PO SCH (08:00)
== END 2020-02-04 10:25 | disposition home or self-care (01) | DRG 460 ==
LOC: ORIP 06:14 → UNDOADMIN 06:14 → ORIP 14:11 → 4NE 15:33
PROVIDERS: ADMIT Neurological Surgery; ATTEND Neurological Surgery
PROC: 01NB0ZZ Release Lumbar Nerve, Open Approach (ICD-10-PCS; 2020-02-02)
PROC: 0SG0071 Fusion of Lumbar Vertebral Joint with Autologous Tissue Substitute, Posterior Approach, Posterior Column, Open Approach (ICD-10-PCS; principal; 2020-02-02 16:00)
DX: M48.061 Spinal stenosis, lumbar region without neurogenic claudication (principal); M54.16 Radiculopathy, lumbar region; I95.9 Hypotension, unspecified
CPT/HCPCS: 72100; J3490; 95938; 95941; C1713; G0378; J0690; J1100; J2175; J2250; J2405; J2704; J2710; J3010; J3480; C1762; J2800; J7120; U0001-CS

== ENCOUNTER 2020-03-14 10:49 | Outpatient (CLI) | payer OTHER ==
[2020-03-14 11:06] LABS: BASOPHILS # (AUTO) 0.04 x10^3/uL (0-0.1); BASOPHILS % (AUTO) 1 % (0-1); EOSINOPHILS # (AUTO) 0.14 x10^3/uL (0-0.4); EOSINOPHILS % (AUTO) 2 % (1-7); LYMPHOCYTES % (AUTO) 41 % (22-44); MD NO; MEAN CORPUSCULAR HEMOGLOBIN 30.2 pg (27.0-34.8); MEAN CORPUSCULAR HGB CONC 32.3 g/dL (32.4-35.8); MEAN PLATELET VOLUME 8.1 fL (7.4-10.4); MONOCYTES # (AUTO) 0.46 x10^3/uL (0.2-0.8); MONOCYTES % (AUTO) 7 % (2-9); NEUTROPHILS # (AUTO) 3.25 x10^3/uL (1.8-6.8); NEUTROPHILS % (AUTO) 49 % (42-75); PLATELET COUNT 271 x10^3/uL (130-400); RED BLOOD COUNT 4.34 x10^6/uL (3.82-5.3); RED CELL DISTRIBUTION WIDTH 13.5 % (9.6-15.2)
[2020-03-14 11:18] LABS: ALANINE AMINOTRANSFERASE 26 U/L (12-78); ALBUMIN 3.7 g/dL (3.4-5.0); ANION GAP 3 mmol/L (5-15); CALCIUM 9.6 mg/dL (8.5-10.1); CHLORIDE 109 mmol/L (98-107); CHOLESTEROL, TOTAL 208 mg/dL (140-239); CREATININE 0.71 mg/dL (0.55-1.02)
[2020-03-14 11:20] LABS: ALKALINE PHOSPHATASE 117 U/L (45-117); BILIRUBIN,TOTAL 0.4 mg/dL (0.2-1.0); TOTAL PROTEIN 6.7 g/dL (6.4-8.2); TRIGLYCERIDES 115 mg/dL (50-200); VLDL CHOLESTEROL 23 mg/dL (0-25)
[2020-03-14 12:13] LABS: CHOL/HDL RATIO 3.4; HDL CHOL % 30 % (28-40); HDL CHOLESTEROL (DIRECT) 62 mg/dL (40-60); LDL CHOLESTEROL,CALCULATED 123 mg/dL (54-169)
[2020-05-23] MEDS ORDERED: OXYC-307 PO (10:18)
[2020-05-23] MEDS ORDERED: VENL37.57 PO (10:18)
[2020-05-23] MEDS ORDERED: ATOR10TA PO (10:18)
== END 2020-03-14 23:59 | disposition home or self-care (01) ==
LOC: RAD 10:49
PROVIDERS: ATTEND Neurological Surgery
DX: Z01.810 Encounter for preprocedural cardiovascular examination (principal); E66.9 Obesity, unspecified; E78.00 Pure hypercholesterolemia, unspecified; I10 Essential (primary) hypertension; I35.1 Nonrheumatic aortic (valve) insufficiency; M43.27 Fusion of spine, lumbosacral region; M48.061 Spinal stenosis, lumbar region without neurogenic claudication; M54.5 Low back pain; M51.36 Other intervertebral disc degeneration, lumbar region; M47.817 Spondylosis without myelopathy or radiculopathy, lumbosacral region
CPT/HCPCS: 36415; 72100; 80053; 80061; 85025

== ENCOUNTER 2020-03-16 08:00 | Outpatient (CLI) | payer OTHER | END 2020-03-16 23:59 | disposition home or self-care (01) | LOC: RAD 08:00 | PROVIDERS: ATTEND Physician Assistant | DX: I82.403 Acute embolism and thrombosis of unspecified deep veins of lower extremity, bilateral (principal) | CPT/HCPCS: 93970 ==

== ENCOUNTER → 2020-04-17 | Outpatient (CLI) | payer OTHER | END | disposition home or self-care (01) | LOC: CFH 13:48 | PROVIDERS: ATTEND Physician Assistant Medical | DX: Z01.810 Encounter for preprocedural cardiovascular examination (principal); I06.1 Rheumatic aortic insufficiency | CPT/HCPCS: 93306 ==

== ENCOUNTER 2020-05-04 13:09 | Outpatient (CLI) | payer OTHER | END 2020-05-04 23:59 | disposition home or self-care (01) | LOC: CARD 13:09 | PROVIDERS: ATTEND Physician Assistant Medical | DX: R06.02 Shortness of breath (principal) | CPT/HCPCS: 94060; 94726; 94729 ==

== ENCOUNTER → 2020-05-23 | Outpatient (CLI) | payer OTHER ==
[~2020-05-23] MED LIST changes: +ATOR10TA PO; +VENL37.57 PO
[2020-05-23 10:54] LABS: BASOPHILS % (AUTO) 1 % (0-1); EOSINOPHILS % (AUTO) 3 % (1-7); LYMPHOCYTES % (AUTO) 45 % (22-44); MEAN CORPUSCULAR HEMOGLOBIN 29.9 pg (27.0-34.8); MEAN CORPUSCULAR HGB CONC 32.7 g/dL (32.4-35.8); MEAN PLATELET VOLUME 8.4 fL (7.4-10.4); MONOCYTES % (AUTO) 8 % (2-9); NEUTROPHILS % (AUTO) 44 % (42-75); PLATELET COUNT 281 x10^3/uL (130-400); RED BLOOD COUNT 4.66 x10^6/uL (3.82-5.3); RED CELL DISTRIBUTION WIDTH 14.2 % (9.6-15.2)
[2020-05-23 10:55] LABS: MD NO
[2020-05-23 11:01] LABS: ANION GAP 4 mmol/L (5-15); CALCIUM 9.1 mg/dL (8.5-10.1); CHLORIDE 109 mmol/L (98-107); CREATININE 0.73 mg/dL (0.55-1.02)
== END | disposition home or self-care (01) ==
LOC: STAR 09:57
PROVIDERS: ATTEND Orthopaedic Surgery
DX: Z01.818 Encounter for other preprocedural examination (principal); M17.9 Osteoarthritis of knee, unspecified
CPT/HCPCS: 36415; 80048; 85025; 87081; 93005

== ENCOUNTER → 2020-05-26 | Outpatient (CLI) | payer OTHER | END | disposition home or self-care (01) | LOC: STAR 13:41 | PROVIDERS: ATTEND Anesthesiology | DX: Z01.812 Encounter for preprocedural laboratory examination (principal); Z20.828 Contact with and (suspected) exposure to other viral communicable diseases | CPT/HCPCS: 36415; 87635 ==

== ENCOUNTER 2020-05-31 09:33 | Observation (INO) | payer OTHER ==
[~2020-05-31] VITALS: Ht 167.6 cm; Wt 101.2 kg
[2020-05-31] MEDS ORDERED: SODIUM CHLORIDE 0.9% 50 ML ONE (09:40)
[2020-05-31] MEDS ORDERED: ROPIvacaine/PF 0.2%, 20 ML ONE (09:40)
[2020-05-31] MEDS ORDERED: KETOROLAC 60 MG/2 ML ONE (09:40)
[2020-05-31] MEDS ORDERED: EPINEPHRINE 1 MG/ML, 1ML ONE (09:40)
[2020-05-31] MEDS ORDERED: TRANEXAMIC ACID 100 MG/ML, 10ML ONE ×2 (09:40→12:41)
[2020-05-31] MEDS ORDERED: HYDROcodone/APAP 7.5-325MG/15ML UDC PO PRN (11:00)
[2020-05-31] MEDS ORDERED: CHLORHEXIDINE 15 ML UDC MM ONE (11:00)
[2020-05-31] MEDS ORDERED: LACTATED RINGERS 1,000 ML IV SCH (11:00)
[2020-05-31] MEDS ORDERED: MEPERIDINE/PF 25MG/0.5ML IVPush PRN (11:00)
[2020-05-31] MEDS ORDERED: OXYcodone 5 MG/5 ML ORAL.SOL UDC PO PRN (11:00)
[2020-05-31] MEDS ORDERED: KETOROLAC 30 MG/1 ML IVPush PRN (11:00)
[2020-05-31] MEDS ORDERED: PROMETHAZINE 25 MG/ML, 1ML IVPush PRN (11:00)
[2020-05-31] MEDS ORDERED: LIDOCAINE-MPF 1%, 2ML INFIL ONE (11:00)
[2020-05-31] MEDS ORDERED: ROCURONIUM 10MG/ML,5ML ONE (11:07)
[2020-05-31] MEDS ORDERED: CEFAZOLIN 1,000 MG ONE (11:07)
[2020-05-31] MEDS ORDERED: FENTANYL PF 100 MCG/2ML ONE ×4 (11:07→15:03)
[2020-05-31] MEDS ORDERED: MIDAZOLAM 1 MG/ML, 2ML ONE (11:07)
[2020-05-31] MEDS ORDERED: ONDANSETRON 2MG/ML, 2ML ONE (11:07)
[2020-05-31] MEDS ORDERED: DEXAMETHASONE 4 MG/ML, 1ML ONE (11:07)
[2020-05-31] MEDS ORDERED: NEOSTIGMINE 1 MG/ML, 10ML ONE (11:07)
[2020-05-31] MEDS ORDERED: SUCCINYLCHOLINE 20 MG/ML, 10ML ONE (11:07)
[2020-05-31] MEDS ORDERED: PROPOFOL 10 MG/ML, 20ML ONE (11:07)
[2020-05-31] MEDS ORDERED: GLYCOPYRROLATE 0.2MG/1ML, 5ML ONE (11:07)
[2020-05-31] MEDS ORDERED: OXYcodone 5 MG/5 ML ORAL.SOL UDC ONE (14:18)
[2020-05-31] MEDS ORDERED: HYDROmorphone 2 MG/ML, 1ML ONE (14:18)
[2020-05-31] MEDS ORDERED: MEPERIDINE/PF 25MG/ML,1ML ONE (14:24)
[2020-05-31] MEDS: HYDROmorphone 1 MG/ML, 1ML INJ IVPush PRN ×4 (14:25→14:50)
[2020-05-31] MEDS ORDERED: DIAZEPAM 5 MG TABLET ONE (14:29)
[2020-05-31] MEDS ORDERED: PROMETHAZINE 25 MG/ML, 1ML IM PRN (14:30)
[2020-05-31] MEDS ORDERED: ONDANSETRON 2MG/ML, 2ML IVPush PRN (14:30)
[2020-05-31] MEDS ORDERED: MAGNESIUM HYDROXIDE 8%, 30ML UDC PO PRN (14:30)
[2020-05-31] MEDS ORDERED: DIPHENHYDRAMINE 50 MG/ML, 1ML IVPush PRN (14:30)
[2020-05-31] MEDS ORDERED: HOLD MEDICATION MC PRN (14:30)
[2020-05-31] MEDS ORDERED: BISACODYL 10 MG SUPP PR PRN (14:30)
[2020-05-31] MEDS ORDERED: TRANEXAMIC ACID 1,000 MG in SODIUM CHLORIDE 0.9% 100 ML IVPB ONE (14:30)
[2020-05-31] MEDS: KETOROLAC 30 MG/1 ML IV SCH ×2 (14:30→22:52)
[2020-05-31] MEDS ORDERED: ONDANSETRON 4 MG TABLET PO PRN (14:30)
[2020-05-31] MEDS ORDERED: PROMETHAZINE 12.5 MG SUPP PR PRN (14:30)
[2020-05-31] MEDS ORDERED: PSYLLIUM PACKET PO PRN (14:30)
[2020-05-31] MEDS ORDERED: SENNA/DOCUSATE TABLET PO PRN (14:30)
[2020-05-31] MEDS ORDERED: POLYETHYLENE GLYCOL 17 GM PACKET PO PRN (14:30)
[2020-05-31] MEDS: DIAZEPAM 5 MG TABLET PO PRN ×2 (14:30→22:53)
[2020-05-31] MEDS ORDERED: DIPHENHYDRAMINE 50 MG CAPSULE PO PRN (14:30)
[2020-05-31] MEDS: ACETAMINOPHEN 500 MG TABLET PO SCH ×2 (14:30→20:30)
[2020-05-31] MEDS: SODIUM CHLORIDE 0.9% 1,000 ML IV SCH ×2 (14:30→20:31)
[2020-05-31] MEDS ORDERED: ALUMINUM/MAG/SIMETHICONE 30 ML UDC PO PRN (14:30)
[2020-05-31] MEDS ORDERED: HYDROmorphone 1 MG/ML, 1ML INJ IVPush PRN (14:30)
[2020-05-31] MEDS ORDERED: ACETAMINOPHEN 650 MG/20.3 ML UDC ONE (14:36)
[2020-05-31] MEDS ORDERED: KETOROLAC 30 MG/1 ML ONE (14:36)
[2020-05-31] MEDS: FENTANYL PF 100 MCG/2ML IV PRN ×4 (15:00→15:18)
[2020-05-31] MEDS ORDERED: LORazepam 2 MG/ML, 1ML ONE (15:22)
[2020-05-31] MEDS ORDERED: LORazepam 2 MG/ML, 1ML IVPush PRN (16:00)
[2020-05-31 17:00] VITALS: BP 132/74
[2020-05-31] MEDS: OXYcodone IR 5MG TABLET PO PRN ×2 (18:42→22:53)
[2020-05-31 20:03] VITALS: BP 121/80
[2020-05-31] MEDS: CEFAZOLIN PMX 1GM/50ML 50 ML IVPB SCH (20:31)
[2020-05-31] MEDS: DOCUSATE 100 MG CAPSULE PO SCH (20:31)
[2020-05-31] MEDS ORDERED: ATORVASTATIN 10 MG TABLET PO SCH (21:00)
[2020-05-31 23:06] VITALS: BP 111/63
[2020-06-01] MEDS: ACETAMINOPHEN 500 MG TABLET PO SCH ×2 (02:48→08:21)
[2020-06-01] MEDS: OXYcodone IR 5MG TABLET PO PRN ×3 (02:48→10:40)
[2020-06-01 03:42] VITALS: BP 102/52
[2020-06-01] MEDS: CEFAZOLIN PMX 1GM/50ML 50 ML IVPB SCH (04:30)
[2020-06-01] MEDS: DIAZEPAM 5 MG TABLET PO PRN ×2 (04:36→10:38)
[2020-06-01] MEDS ORDERED: ASPIRIN 81 MG TABLET EC PO SCH (06:00)
[2020-06-01] MEDS ORDERED: METOPROLOL SUCCINATE 25 MG TAB.ER.24H PO SCH (06:00)
[2020-06-01] MEDS: KETOROLAC 30 MG/1 ML IV SCH (06:39)
[2020-06-01] MEDS: DOCUSATE 100 MG CAPSULE PO SCH (08:23)
[2020-06-01 08:25] VITALS: BP 112/56
[2020-06-01] MEDS ORDERED: VENLAFAXINE 37.5MG TABLET PO SCH (09:00)
== END 2020-06-01 11:30 | disposition home or self-care (01) ==
LOC: OUT 09:33 → ORIP 14:06 → 3WST 17:45
PROVIDERS: ADMIT Orthopaedic Surgery; ATTEND Orthopaedic Surgery
DX: M17.12 Unilateral primary osteoarthritis, left knee (principal); I35.1 Nonrheumatic aortic (valve) insufficiency; G56.00 Carpal tunnel syndrome, unspecified upper limb; I10 Essential (primary) hypertension; Z79.899 Other long term (current) drug therapy; Z87.891 Personal history of nicotine dependence; Z85.9 Personal history of malignant neoplasm, unspecified; Z96.653 Presence of artificial knee joint, bilateral; Z98.1 Arthrodesis status
CPT/HCPCS: 27447; 36415; 73560; 85014; 85018; 96361; 96365; 96366; 96375; 96376; 97162; C1713; C1776; G0378; J0171; J0330; J0690; J1100; J1170; J1885; J2060; J2175; J2250; J2405; J2704; J2710; J2795; J3010; J7030; J7120

== ENCOUNTER 2020-06-09 11:52 | Observation (INO) | payer OTHER ==
[~2020-06-09] VITALS: Ht 167.6 cm; Wt 99.5 kg
[2020-06-09 12:31] LABS: BASOPHILS % (AUTO) 0 % (0-1); EOSINOPHILS % (AUTO) 3 % (1-7); LYMPHOCYTES % (AUTO) 25 % (22-44); MEAN CORPUSCULAR HEMOGLOBIN 30.7 pg (27.0-34.8); MEAN CORPUSCULAR HGB CONC 33.6 g/dL (32.4-35.8); MEAN PLATELET VOLUME 7.7 fL (7.4-10.4); MONOCYTES % (AUTO) 6 % (2-9); NEUTROPHILS % (AUTO) 66 % (42-75); PLATELET COUNT 522 x10^3/uL (130-400); RED BLOOD COUNT 3.83 x10^6/uL (3.82-5.3)
[2020-06-09 12:34] LABS: MD NO
[2020-06-09 12:39] LABS: ALBUMIN 3.5 g/dL (3.4-5.0); ANION GAP 8 mmol/L (5-15); CALCIUM 9.5 mg/dL (8.5-10.1); CHLORIDE 108 mmol/L (98-107)
[2020-06-09 12:43] LABS: ALANINE AMINOTRANSFERASE 25 U/L (12-78); ALKALINE PHOSPHATASE 115 U/L (45-117); BILIRUBIN,TOTAL 0.8 mg/dL (0.2-1.0); CREATININE 0.84 mg/dL (0.55-1.02); TOTAL PROTEIN 7.2 g/dL (6.4-8.2)
[2020-06-09] MEDS ORDERED: SODIUM CHLORIDE FLUSH 10ML SYR IVF ONE ×3 (15:00→15:30)
--- NOTE | 2020-06-09 15:05 | NUR ---
THIS IS A 55 YO FEMALE COMING IN FOR LEFT SIDED HIP/UPPER LEG NERVE PAIN AFTER RECENT LEFT KNEE RECONSTRUCTION APPROX 11 DAYS AGO. PATIENT STATES SHE HAS NERVE DAMAGE IN THAT LEG FROM PREVIOUS INJURY, "I THINK THIS SURGERY JUST MADE IT WORSE." PATIENT ALSO STATES "I HAVE FLUID IN MY SPINAL COLUMN THEY SAID COULD POTENTIALLY GET INFECTED TOO, SO IT MIGHT BE THAT". PATIENT C/O FEVER AND CHILLS AT HOME OVER THE PAST WEEK, "IT WAS 103 FOR LIKE 5 DAYS". CONTROLLED WITH TYLENOL AT HOME, DOWN TO 99.8 [address] IN [address], VSS, ERP IN ROOM FOR EVAL.
[2020-06-09] MEDS ORDERED: methylPREDNISolone SOD SUCC 125 MG/2 ML ONE (15:13)
[2020-06-09] MEDS ORDERED: HYDROmorphone 1 MG/ML, 1ML INJ ONE ×2 (15:13→21:21)
[2020-06-09] MEDS ORDERED: METHOCARBAMOL 750 MG TABLET ONE (15:13)
[2020-06-09] MEDS: HYDROmorphone 1 MG/ML, 1ML INJ IVPush PRN ×2 (15:26→21:23)
[2020-06-09] MEDS ORDERED: methylPREDNISolone SOD SUCC 125 MG/2 ML IVPush ONE (15:30)
[2020-06-09] MEDS ORDERED: METHOCARBAMOL 750 MG TABLET PO ONE (15:30)
--- NOTE | 2020-06-09 15:38 | NUR ---
MRI SCREENING FORM COMPLETE, FAXED TO MRI NUMBER LISTED. PIV PLACED, MEDICATED PER EMAR, TOLERATED WELL
--- NOTE | 2020-06-09 15:50 | NUR ---
PATIENT IN MRI
[2020-06-09] MEDS ORDERED: GADOTERATE 10 MMOL/20 ML SYR ONE (16:34)
--- NOTE | 2020-06-09 17:02 | NUR ---
PATIENT BACK FROM MRI, ADMITTING MD IN ROOM. MONITORING BACK IN PLACE, MELANIE VO
--- NOTE | 2020-06-09 17:05 | NUR ---
US TECH TO ROOM
[2020-06-09] MEDS ORDERED: ONDANSETRON ODT 4 MG PO PRN (17:30)
[2020-06-09] MEDS ORDERED: LIDODERM 5% PATCH TD PRN (17:30)
[2020-06-09] MEDS ORDERED: METHOCARBAMOL 500 MG TABLET PO PRN (17:30)
[2020-06-09] MEDS ORDERED: ACETAMINOPHEN 325 MG TABLET PO PRN (17:30)
[2020-06-09] MEDS ORDERED: ONDANSETRON 2MG/ML, 2ML IVPush PRN (17:30)
[2020-06-09] MEDS ORDERED: ENOXAPARIN 40 MG/0.4 ML ONE (17:36)
--- NOTE | 2020-06-09 17:38 | NUR ---
REPORT GIVEN TO SHANDA HERNANDEZ AND PATIENT MOVED TO ROOM 22. CALLED FOR HOSPITAL BED
[2020-06-09] MEDS: ENOXAPARIN 40 MG/0.4 ML SQ SCH (17:39)
--- NOTE | 2020-06-09 17:40 | NUR ---
PATIENT MEDICATED PER EMAR
--- NOTE | 2020-06-09 17:56 | NUR ---
ASSUMED CARE OF PATIENT.
--- NOTE | 2020-06-09 18:52 | NUR ---
REPORT GIVEN SHANDA HAND
[2020-06-09 19:00] LABS: MICROSCOPIC NOT IND
[2020-06-09] MEDS ORDERED: FAMOTIDINE 20 MG TABLET ONE (21:15)
[2020-06-09] MEDS: FAMOTIDINE 20 MG TABLET PO SCH (21:18)
[2020-06-09] MEDS: ATORVASTATIN 10 MG TABLET PO SCH (21:18)
[2020-06-09] MEDS ORDERED: METHOCARBAMOL 500 MG TABLET ONE (21:21)
[2020-06-09 21:27] VITALS: BP 100/52
[2020-06-10 03:38] VITALS: BP 104/50
[2020-06-10 05:04] LABS: BASOPHILS % (AUTO) 0 % (0-1); EOSINOPHILS % (AUTO) 0 % (1-7); LYMPHOCYTES % (AUTO) 19 % (22-44); MEAN CORPUSCULAR HEMOGLOBIN 31.3 pg (27.0-34.8); MEAN CORPUSCULAR HGB CONC 33.8 g/dL (32.4-35.8); MEAN PLATELET VOLUME 7.6 fL (7.4-10.4); MONOCYTES % (AUTO) 6 % (2-9); NEUTROPHILS % (AUTO) 76 % (42-75); PLATELET COUNT 489 x10^3/uL (130-400); RED BLOOD COUNT 3.39 x10^6/uL (3.82-5.3); RED CELL DISTRIBUTION WIDTH 13.6 % (9.6-15.2)
[2020-06-10 05:15] LABS: MD NO
[2020-06-10 05:16] LABS: CHLORIDE 107 mmol/L (98-107)
[2020-06-10 05:22] LABS: ALANINE AMINOTRANSFERASE 48 U/L (12-78); ALBUMIN 2.9 g/dL (3.4-5.0); ALKALINE PHOSPHATASE 138 U/L (45-117); ANION GAP 4 mmol/L (5-15); BILIRUBIN,TOTAL 0.7 mg/dL (0.2-1.0); CALCIUM 9.1 mg/dL (8.5-10.1); TOTAL PROTEIN 6.5 g/dL (6.4-8.2)
[2020-06-10] MEDS ORDERED: HYDROmorphone 1 MG/ML, 1ML INJ ONE ×2 (05:25→12:15)
[2020-06-10] MEDS: HYDROmorphone 1 MG/ML, 1ML INJ IVPush PRN ×2 (05:28→12:16)
[2020-06-10] MEDS ORDERED: FAMOTIDINE 20 MG TABLET ONE (09:30)
[2020-06-10] MEDS ORDERED: OXYcodone/APAP 5/325MG TABLET ONE (09:31)
[2020-06-10] MEDS: FAMOTIDINE 20 MG TABLET PO SCH ×2 (09:33→20:42)
[2020-06-10] MEDS: VENLAFAXINE 37.5MG TABLET PO SCH (09:34)
[2020-06-10] MEDS: OXYcodone/APAP 5/325MG TABLET PO PRN ×2 (09:34→19:29)
[2020-06-10] MEDS: METOPROLOL SUCCINATE 25 MG TAB.ER.24H PO SCH (09:34)
--- NOTE | 2020-06-10 09:38 | NUR ---
RECEIVED REPORT FROM COLE FLETCHER RN. PT RESTING IN BED. NADN. VO. PT AWARE OF OC FOR STEROIDS AND PAIN CONTROL.
[2020-06-10 10:23] LABS: HCT (SEDRATE) 33.5 % (34.6-47.8)
[2020-06-10] MEDS ORDERED: LIDOCAINE 1%, 10ML ONE (11:24)
--- NOTE | 2020-06-10 11:52 | NUR ---
PT TAKEN TO IR IN STABLE CONDITION.
--- NOTE | 2020-06-10 12:19 | NUR ---
PT RESTING IN BED. NADN. [facility] PROVIDED W/ LUNCH TRAY.
--- NOTE | 2020-06-10 15:00 | NUR ---
REPORT GIVEN TO RICK,, RECEIVING RN. ALL QUESTIONS ANSWERED. AWAITING PT TRANSPORT.
[2020-06-10] MEDS: HYDROmorphone 2 MG/ML, 1ML IVPush PRN ×2 (17:28→22:34)
[2020-06-10] MEDS: ENOXAPARIN 40 MG/0.4 ML SQ SCH (17:28)
[2020-06-10] MEDS ORDERED: BISACODYL 10 MG SUPP PR PRN (18:30)
[2020-06-10 19:57] VITALS: BP 130/77
[2020-06-10] MEDS: ATORVASTATIN 10 MG TABLET PO SCH (20:42)
[2020-06-11 01:03] VITALS: BP 95/58
[2020-06-11] MEDS: OXYcodone/APAP 5/325MG TABLET PO PRN ×2 (04:18→08:56)
[2020-06-11 07:37] VITALS: BP 101/63
[2020-06-11] MEDS: VENLAFAXINE 37.5MG TABLET PO SCH (07:50)
[2020-06-11] MEDS: FAMOTIDINE 20 MG TABLET PO SCH (07:50)
[2020-06-11] MEDS: METOPROLOL SUCCINATE 25 MG TAB.ER.24H PO SCH (07:50)
[2020-06-11] MEDS ORDERED: PRED10TA PO (10:25)
[2020-06-11] MEDS ORDERED: OXYC5TAB3 PO (10:25)
== END 2020-06-11 11:53 | disposition home or self-care (01) ==
LOC: ED 15:16 → EDIP 15:22 → INTOOBSV 15:22 → 3N 06-10 15:18 → DCLOUNGE 06-11 11:50
PROVIDERS: ADMIT Internal Medicine; ATTEND Internal Medicine
DX: M54.5 Low back pain (principal); G89.29 Other chronic pain; M19.90 Unspecified osteoarthritis, unspecified site; I35.1 Nonrheumatic aortic (valve) insufficiency; I10 Essential (primary) hypertension; D72.829 Elevated white blood cell count, unspecified; D47.3 Essential (hemorrhagic) thrombocythemia; Z79.899 Other long term (current) drug therapy; Z98.1 Arthrodesis status; Z96.653 Presence of artificial knee joint, bilateral; Z96.611 Presence of right artificial shoulder joint; Z87.891 Personal history of nicotine dependence
CPT/HCPCS: 10030; 36415; 71045; 72158; 73564; 75989; 80053; 81003; 83605; 85025; 85651; 86140; 87015; 87040; 87070; 87075; 87102; 87116; 87205; 87206; 93971; 96372; 96374; 96375; 96376; 97161; 99285; A9575; G0378; J1170; J1650; J2930; J3490; J7512

== ENCOUNTER 2021-01-22 11:35 | Emergency (ER) | payer OTHER ==
[~2021-01-22] VITALS: Ht 167.6 cm; Wt 97.5 kg
[~2021-01-22 11:35] MED LIST changes: -CYCL-259 PO; +CYCL10TA2 PO; -HYDR-3246 PO; +HYDR-3248 PO; +METH-640 PO; -METH750T2 PO; -OXYC-307 PO; +OXYC-380 PO; +OXYC5TAB98 PO; +PRED10TA PO
--- NOTE | 2021-01-22 12:05 | NUR ---
URINE SENT TO LAB
[2021-01-22 12:20] LABS: MICROSCOPIC AUTO
[2021-01-22 13:09] LABS: BASOPHILS % (AUTO) 1 % (0-1); EOSINOPHILS % (AUTO) 2 % (1-7); LYMPHOCYTES % (AUTO) 29 % (22-44); MEAN CORPUSCULAR HEMOGLOBIN 31.7 pg (27.0-34.8); MEAN CORPUSCULAR HGB CONC 34.1 g/dL (32.4-35.8); MEAN PLATELET VOLUME 8.3 fL (7.4-10.4); MONOCYTES % (AUTO) 8 % (2-9); NEUTROPHILS % (AUTO) 60 % (42-75); PLATELET COUNT 287 x10^3/uL (130-400); RED BLOOD COUNT 4.54 x10^6/uL (3.82-5.3); RED CELL DISTRIBUTION WIDTH 13.7 % (9.6-15.2)
[2021-01-22 13:21] LABS: ALANINE AMINOTRANSFERASE 19 U/L (12-78); ALBUMIN 3.7 g/dL (3.4-5.0); ANION GAP 5 mmol/L (5-15); CALCIUM 9.7 mg/dL (8.5-10.1); CHLORIDE 106 mmol/L (98-107); CREATININE 0.76 mg/dL (0.55-1.02)
[2021-01-22 13:24] LABS: ALKALINE PHOSPHATASE 126 U/L (45-117); BILIRUBIN,TOTAL 0.5 mg/dL (0.2-1.0); TOTAL PROTEIN 7.7 g/dL (6.4-8.2)
--- NOTE | 2021-01-22 13:44 | NUR ---
TO [facility] FROM LOBBY
--- NOTE | 2021-01-22 13:55 | NUR ---
PT STATES HAS HAD PAINFUL URINATION X 1 WEEK AND PAIN UNDER RIGHT RIB. PT STATES HAS CHRONIC BACK PAIN.
[2021-01-22 13:57] VITALS: BP 119/80
--- NOTE | 2021-01-22 14:08 | NUR ---
Patient given discharge instructions and they have confirmed that they understand the instructions. Patient ambulatory with steady gait. No question at time of discharge.
[2021-01-22] MEDS ORDERED: ASPIRIN 81 MG TABLET CHEW ONE (20:31)
== END 2021-01-22 14:11 | disposition home or self-care (01) ==
LOC: ED 14:00
DX: N30.00 Acute cystitis without hematuria (principal)
CPT/HCPCS: 36415; 80053; 81001; 83690; 85025; 87077; 87086; 87186; 99283

== ENCOUNTER → 2021-03-08 | Outpatient (CLI) | payer OTHER, MEDICARE ==
[2021-03-08 10:36] LABS: BASOPHILS % (AUTO) 1 % (0-1); EOSINOPHILS % (AUTO) 5 % (1-7); LYMPHOCYTES % (AUTO) 34 % (22-44); MEAN CORPUSCULAR HEMOGLOBIN 31.4 pg (27.0-34.8); MEAN PLATELET VOLUME 8.8 fL (7.4-10.4); MONOCYTES % (AUTO) 6 % (2-9); NEUTROPHILS % (AUTO) 54 % (42-75); PLATELET COUNT 254 x10^3/uL (130-400); RED CELL DISTRIBUTION WIDTH 13.5 % (9.6-15.2)
[2021-03-08 10:45] LABS: ALBUMIN 3.9 g/dL (3.4-5.0); CALCIUM 9.5 mg/dL (8.5-10.1)
[2021-03-08 10:51] LABS: ALANINE AMINOTRANSFERASE 24 U/L (12-78); ALKALINE PHOSPHATASE 123 U/L (45-117); ANION GAP 4 mmol/L (5-15); BILIRUBIN,TOTAL 0.3 mg/dL (0.2-1.0); CHLORIDE 107 mmol/L (98-107); CREATININE 0.79 mg/dL (0.55-1.02); TOTAL PROTEIN 7.5 g/dL (6.4-8.2)
== END | disposition home or self-care (01) ==
LOC: LAB 09:56
PROVIDERS: ATTEND Family Medicine
DX: Z01.818 Encounter for other preprocedural examination (principal)
CPT/HCPCS: 36415; 80053; 85025; 93005